=== PATIENT | female | born 1955 | race Hispanic/Latino ===

== ENCOUNTER 2016-12-18 10:12 | Day surgery (SDC) | payer MEDICAID ==
[2016-12-12 15:31] VITALS: BMI 27.1
[2016-12-18] MEDS ORDERED: Bupivacaine HCl 0.5% PF (10 ml) Inj ONE (10:57)
[2016-12-18] MEDS ORDERED: Iohexol 300 10 ML ONE (10:57)
[2016-12-18] MEDS ORDERED: Lidocaine 1% Inj (20ml) ONE (10:57)
[2016-12-18] MEDS ORDERED: methylPREDNISolone Depo 80 mg/ml Inj ONE (10:57)
[2016-12-18] MEDS ORDERED: Iohexol 300 10 ML IJ ONE (11:10)
[2016-12-18] MEDS ORDERED: Bupivacaine HCl 0.5% PF (30 ml) Inj IJ ONE (11:10)
[2016-12-18] MEDS ORDERED: MethylPREDNISolone Depo 40 mg/ml Inj IM ONE (11:10)
[2016-12-18] MEDS ORDERED: Lidocaine 1% Inj (20ml) IJ ONE (11:10)
[2016-12-18 11:42] VITALS: BP 115/67; PULSE 56; RESP 18; TEMP 98.5
[2016-12-18 13:16] VITALS: O2SAT 97
--- NOTE | 2016-12-18 13:21 | PCM.OP ---
Operative Report - Operative Report Date of Surgery/Procedure: 12/18/16 Time of Surgery/Procedure: 11:15 Surgeon: Hamzah Anesthesia/Sedation: Local anesthesia Pre-Operative Diagnosis: Left sacroiliitis Post-Operative Diagnosis: Same Indication for Surgery: Intractable pain Operative Findings: After rediscussion of the procedure with the patient including its risks benefits and alternatives outcome data possibility of multifactorial increased pain patient consented to the procedure. She denies any recent infections bleeding tendencies or being on anticoagulants decision was then made to proceed to or. The patient was placed on the fluoroscopy table in a prone position with 2 pillows underneath her abdomen. The back was prepped and draped in the usual sterile fashion and sterile technique was adhered to treatment dry procedure. The left sacroiliac joint was first visualized on the anteroposterior view. Slight angulation towards the contralateral right side was used to delineate the anterior opening from the posterior opening. The skin overlying the posterior opening of the inferior pole of the left sacroiliac joints was then infiltrated with 1% lidocaine using 25-gauge needle. Subsequently a 22-gauge 3-1/2 inch spinal needle was synchronously advanced under fluoroscopic guidance until tip needle may bony contact with the joint capsule. Needle was then walked slightly into the sacroiliac joint. This was confirmed by injecting approximately 0.5 mL Isovue contrast which showed spread on monitoring line superiorly. Exercise factory position of the needle approximately 4 mL over 0.5% Marcaine and to promote symmetrical subjective at the Achilles patient's back was cleaned and dried and Band-Aids were applied. Patient was transferred to recovery area in good condition is without any signs of CURTAIN CLEANER toxicity or any neurological deficit. She will follow up in office in approximately 2-4 weeks. End of dictation Procedure/Operation Description: Left sacroiliac joint injection under fluoroscopy Estimated Blood Loss: None. Complications: None. Discharge & Condition: Stable to home.
== END 2016-12-18 12:30 | disposition home or self-care (01) ==
LOC: H.OPSURG 10:12
PROVIDERS: ATTEND Anesthesiology
DX: M46.1 Sacroiliitis, not elsewhere classified (principal)

== ENCOUNTER 2018-04-17 08:53 | Day surgery (SDC) | payer MEDICAID ==
[2018-04-06 14:23] VITALS: BMI 27.4
[2018-04-17 09:28] VITALS: RESP 18
[2018-04-17] MEDS ORDERED: Iohexol 300 10 ML ONE (09:52)
[2018-04-17] MEDS ORDERED: MethylPREDNISolone Depo 40 mg/ml Inj ONE (09:52)
[2018-04-17] MEDS ORDERED: Bupivacaine HCl 0.25% PF (30 ml) Inj ONE (09:52)
[2018-04-17] MEDS ORDERED: Lidocaine 1% Inj (20ml) ONE (09:53)
[2018-04-17] MEDS ORDERED: Bupivacaine HCl 0.25% PF (30 ml) Inj IJ ONE (10:00)
[2018-04-17] MEDS ORDERED: Iohexol 300 10 ML IJ ONE (10:00)
[2018-04-17] MEDS ORDERED: MethylPREDNISolone Depo 40 mg/ml Inj IM ONE (10:00)
[2018-04-17] MEDS ORDERED: Lidocaine 1% Inj (20ml) IJ ONE (10:00)
[2018-04-17 10:40] VITALS: O2SAT 96
[2018-04-17 11:27] VITALS: BP 103/61; PULSE 72; TEMP 98.3
--- NOTE | 2018-04-17 16:33 | RAD ---
Date of service: 04/17/2018 PROCEDURE: Intraoperative Fluoroscopy. HISTORY: PAIN MANAGEMENT FINDINGS: Fluoroscopic assistance was provided for pelvic pain management. Please refer to the operative report from RONALD Covarrubias. Technical failure precluded recording of fluoroscopy data.
--- NOTE | 2018-04-17 22:52 | OP ---
PROCEDURE DATE: 04/17/2018 PREOPERATIVE DIAGNOSIS: Right sacroiliac joint dysfunction. POSTOPERATIVE DIAGNOSIS: Right sacroiliac joint dysfunction. PROCEDURE: Right sacroiliac joint steroid injection. ANESTHESIOLOGIST: Anitra Burks MD SURGEON: Chloe Goodson MD TYPE OF ANESTHESIA: Monitored anesthesia care. COMPLICATIONS: None. SPECIMEN: None. DESCRIPTION OF PROCEDURE: After we had a discussion of the procedure with the patient including its risks, benefits, alternatives, outcome data and possibility of no effect or increased pain, the patient consented to the procedure. She denied any recent infection, bleeding tendencies or being on anticoagulants. A decision was then made to proceed to the OR. The patient was placed on the fluoroscopy table in the prone position with two pillows underneath her abdomen. The back was prepped and draped in the usual sterile fashion, and a sterile technique was adhered to during the entire procedure. Then, the right sacroiliac joint was first visualized on the anteroposterior view. Oblique angle towards the ipsilateral side was used to differentiate the posterior opening from the anterior opening. The target was at the inferior pole of the posterior opening through the right sacroiliac joint. The skin overlying this area was then infiltrated with 1% lidocaine using 25-gauge needle. Subsequently, a 22-gauge 3.5 inch spinal needle was incrementally advanced under fluoroscopic guidance until the tip of the needle walked into the joint capsule. This was confirmed by injecting approximately 1 mL of Isovue contrast. At this point, approximately 3 mL of 0.25% Marcaine and Depo-Medrol mixture was injected. Then, approximately 6 mL of 0.25% Marcaine and Depo-Medrol mixture was distributed along the right iliac crest along its superior border using a 22-gauge 3.5-inch needle. The patient tolerated the procedure well. Needle was then removed and the patient's back was cleaned and dried, and bandages were applied. The patient was then transferred to the recovery area in good condition without any signs of METAL FABRICATOR toxicity or any neurological deficit. She will be following up in office in approximately two to four weeks. Chloe Goodson MD
== END 2018-04-17 11:25 | disposition home or self-care (01) ==
LOC: H.OPSURG 08:53
PROVIDERS: ATTEND Anesthesiology
DX: M70.61 Trochanteric bursitis, right hip (principal); K21.9 Gastro-esophageal reflux disease without esophagitis
CPT/HCPCS: 27096; J1030; Q9967